=== PATIENT | female | born 1975 | race Caucasian/White ===

== ENCOUNTER 2017-02-04 01:36 | Outpatient (CLI) | payer MEDICARE, MEDICAID | END 2017-02-04 01:37 | disposition home or self-care (01) | LOC: BICULT 01:36 | PROVIDERS: ATTEND Internal Medicine Gastroenterology | DX: K74.60 Unspecified cirrhosis of liver (principal); K80.20 Calculus of gallbladder without cholecystitis without obstruction | CPT/HCPCS: 76705 ==

== ENCOUNTER 2017-04-20 16:36 | Outpatient (CLI) | payer MEDICARE, MEDICAID ==
[2017-04-20 17:30] LABS: Hemoglobin 12.3 g/dL (12.0-16.0); Mean Corpuscular HGB CONC 35.2 g/dL (32.0-36.0); Mean Corpuscular Hemoglobin 35.3 pg (27.0-31.0); Platelet Count 200 thou/uL (130-400); RBC Distribution Width 12.8 % (11.5-14.5); Red Blood Cell (RBC) Count 3.49 mill/uL (4.20-5.40); White Blood Cell (WBC) Count 3.2 thou/uL (4.8-10.8)
[2017-04-20 17:35] LABS: PTT 30.7 SEC (22.9-36.1); Prothrombin Time 13.2 SEC (12.0-14.7)
[2017-04-20 17:37] LABS: BHCG - Serum Negative (NEGATIVE); Pregs Control Background? CLEAR/WHITE (CLR/WHITE); Pregs Control Bar Appear? YES (CONTROL BAR)
[2017-04-20 17:52] LABS: ALT (SGPT) 14 U/L (8-55); AST (SGOT) 24 U/L (5-34); Albumin 4.1 g/dL (3.5-5.0); Alkaline Phosphatase 122 U/L (40-150); Anion Gap 10 mmol/L (10-20); BUN (Urea Nitrogen) 12 mg/dL (7.0-18.7); Bilirubin, Direct 0.2 mg/dL (0.1-0.3); Bilirubin, Total 0.3 mg/dL (0.2-1.2); Calc. Creatinine Clearance 0 mL/min (70-130); Calcium 9.3 mg/dL (7.8-10.44); Carbon Dioxide 37 mmol/L (22-29); Chloride 78 mmol/L (98-107); Estimated GFR-MDRD 67; Glucose 82 mg/dL (70-105); Protein, Total 7.5 g/dL (6.0-8.3); Sodium 122 mmol/L (136-145)
== END 2017-04-20 16:37 | disposition home or self-care (01) ==
LOC: LABBT 16:36
PROVIDERS: ATTEND Student in an Organized Health Care Education/Training Program
DX: Z01.812 Encounter for preprocedural laboratory examination (principal); R87.613 High grade squamous intraepithelial lesion on cytologic smear of cervix (HGSIL); R87.810 Cervical high risk human papillomavirus (HPV) DNA test positive
CPT/HCPCS: 80048; 80076; 84703; 85027; 85610; 85730; 86850; 86900; 86901

== ENCOUNTER 2017-05-18 10:33 | Day surgery (SDC) | payer MEDICARE, MEDICAID ==
[2017-05-15 14:40] VITALS: BMI 16.9
--- NOTE | 2017-05-18 07:49 | HP ---
DATE OF OPERATION: 05/18/2017 CHIEF COMPLAINT: Cervical dysplasia. HISTORY OF PRESENT ILLNESS: This is a 41-year-old G0 with past medical history of hemorrhagic stroke in 2008. History of seizures and alcoholic liver disease , who presented with Pap smear HSIL and vulvar biopsy showing URSZULA-3. She underwent topical treatment for URSZULA without Aldara and subsequently applied the Aldara in excess and resulted in chemical burn to the vulvar area and that has since been treated and resolved. The patient also had ILYA 2 on colpo biopsy and ECC and disposition, the patient had poor cold-knife conization in OR as well as vulvar rebiopsy of URSZULA-3 area. PAST MEDICAL HISTORY: Hemorrhagic stroke in 2008, history of seizures, history of alcoholic liver disease, stable and is followed by Dr. Preciado. OBSTETRIC HISTORY: G0. GYNECOLOGIC HISTORY: Abnormal Pap recently. No history of STDs. PAST SURGICAL HISTORY: Denies. SOCIAL HISTORY: Current smoker. No alcohol or drug use. CURRENT MEDICATIONS: Carbamazepine 200mg po q am and 400mg po q pm, Phenytoin 100mg po tid, ranitidine 150mg po daily, potassium chloride 20mEq four times daily, trazodone 100mg po q hs, quetiapine 600mg po q pm. ALLERGIES: DARVON. PHYSICAL EXAMINATION: VITAL SIGNS: On 04/20/2017, blood pressure was 110/62, weight is 90 pounds, BMI is 15, pulse is 75, respirations 18. GENERAL: No acute distress. CARDIAC: Regular rate and rhythm. LUNGS: Clear to auscultation bilaterally. ABDOMEN: Soft, nontender. EXTREMITIES: No edema, cyanosis or clubbing. PELVIC: Deferred to OR. ASSESSMENT AND PLAN: This is a 41-year-old with history of URSZULA-3 status post treatment with Aldara and ILYA-2 for cold-knife conization secondary to positive ECC and plan to rebiopsy and perform wide local excision of any abnormal tissue around the previous biopsy site. The patient understands the risk of surgery to include bleeding, infection, damage to surrounding tissues or recurrence of dysplasia. The patient has high risk secondary to her liver disease and current smoking and I have counseled the patient extensively on smoking cessation. The patient will follow up with me in 2 weeks postoperative time and has recent preoperative clearance from her primary care doctor. UBALDO
[2017-05-18 11:44] LABS: #Eosinphils 0.3 thou/uL (0.0-0.7); #Lymphocytes 1.5 thou/uL (1.20-3.40); #Monocytes 0.3 thou/uL (0.11-0.59); #Neutrophils 1.9 thou/uL (1.40-6.50); %Basophils 1.1 % (0.0-1.0); %Eosinophils 6.8 % (0.0-10.0); %Lymphocytes 37.2 % (21.0-51.0); %Monocytes 7.4 % (0.0-10.0); %Neutrophils 47.4 % (42.0-75.0); Hemoglobin 14.4 g/dL (12.0-16.0); Mean Corpuscular Hemoglobin 34.3 pg (27.0-31.0); Mean Platelet Volume 7.1 fL (7.4-10.4); Platelet Count 189 thou/uL (130-400); RBC Distribution Width 12.3 % (11.5-14.5)
[2017-05-18 11:47] LABS: PTT 30.9 SEC (22.9-36.1); Prothrombin Time 13.1 SEC (12.0-14.7)
[2017-05-18 12:03] LABS: ALT (SGPT) 18 U/L (8-55); AST (SGOT) 25 U/L (5-34); Albumin 3.9 g/dL (3.5-5.0); Alkaline Phosphatase 96 U/L (40-150); Anion Gap 11 mmol/L (10-20); BUN (Urea Nitrogen) 13 mg/dL (7.0-18.7); Bilirubin, Direct 0.2 mg/dL (0.1-0.3); Bilirubin, Total 0.3 mg/dL (0.2-1.2); Calc. Creatinine Clearance 52 mL/min (70-130); Calcium 9.7 mg/dL (7.8-10.44); Carbon Dioxide 32 mmol/L (22-29); Chloride 101 mmol/L (98-107); Estimated GFR-MDRD 66; Glucose 87 mg/dL (70-105); Protein, Total 6.9 g/dL (6.0-8.3); Sodium 139 mmol/L (136-145)
[2017-05-18] MEDS ORDERED: CEFAZOLIN/Water 2 GM/20 ML SYRINGE ONE (12:07)
[2017-05-18] MEDS ORDERED: Midazolam HCl 2 mg/2 ml Vial ONE (12:07)
[2017-05-18] MEDS ORDERED: Ferric Subsulfate 8 ML BOT ONE (13:15)
[2017-05-18] MEDS ORDERED: Lidocaine 1% w/Epinephrine 1:200K 30 ML VIAL ONE (13:15)
[2017-05-18] MEDS ORDERED: Fentanyl 250 MCG/5 ML VIAL ONE (13:25)
[2017-05-18] MEDS ORDERED: Famotidine/PF 20 mg/2ml Vial ONE (13:25)
[2017-05-18] MEDS ORDERED: Morphine 4 MG/ML VIAL ONE ×2 (14:55→15:15)
--- NOTE | 2017-05-18 14:56 | OP ---
DATE OF PROCEDURE: 05/18/2017 PREOPERATIVE DIAGNOSES: 1. Cervical dysplasia. 2. Vulvar dysplasia. POSTOPERATIVE DIAGNOSES: 1. Cervical dysplasia. 2. Vulvar dysplasia. PROCEDURE: Cold knife cone, wide local excision of vulvar biopsy. ANESTHESIA: General LMA. ATTENDING SURGEON: Irma Nation M.D. PULMONOLOGY TECHNICIAN: None. ESTIMATED BLOOD LOSS: 5 mL. INTRAVENOUS FLUIDS: One liter crystalloid. URINE OUTPUT: 100 mL of clear urine at the beginning of the procedure. DRAINS: None. COMPLICATIONS: None. PATHOLOGY: 1. Cone biopsy marked at 12 o'clock. 2. Lower left vulvar excision. 3. Upper left vulvar biopsy. FINDINGS: The cervix was grossly normal appearing. Nonstaining areas on the cervix were noted after application of Monsel's. The cervical cone bed was hemostatic after procedure. The patient's previ ous vulvar biopsy site at approximately 7:00, 1 x 1 cm wide with a darker pigmentation present and th is was excised with approximately 0.5 cm margin circumferentially. An additional vulvar biopsy was p erformed of the upper left labia where cystic changes were noted on the bilateral labia majora. Thes e are most likely benign, however. OPERATIVE TECHNIQUE: The patient was taken to the operating room where general anesthesia was obtain ed without difficulty. The patient was prepped and draped in a sterile fashion in the dorsal lithoto my position. A speculum was placed in the vagina and the Lugol's was placed over the cervix. Stay s utures of 0 Vicryl were placed at 3 and 9 o'clock, nonstaining areas were noted after application of Lugol's and the cervix was then injected with 20 mL of 1% lidocaine with epinephrine. A [place] blade was used to excise a cone specimen circumferentially and was then tagged at 12. Cervical cone bed w as cauterized with the ball cautery and once hemostasis was noted, Monsel's was applied. [place] c ompression sutures with 0 Vicryl were placed on the anterior and posterior cervical lip. The stay denny tures were then tied in the middle and hemostasis was excellent. The left vulvar area was then exami cristal and cleansed with saline. The wide local excision area was marked with marking pen and injected with 1% lidocaine with epinephrine. The knife was used to excise an ellipse at approximately the 7:0 0 area of the left labia and the Bovie was used to excise the underlying tissue and achieve hemostasi s. This was sent for final pathology. A 2-0 Vicryl was used to approximate the underlying layers of the subcutaneous tissue and wide local excision. A 2-0 Vicryl was then used to run a subcuticular s titch to close the wide local excision and hemostasis was noted to be excellent. An additional biops y was performed of the upper left labia and the specimen was simply excised with a knife and achieved cautery with the Bovie. Hemostasis was noted. All instruments were removed from vagina. The patie nt tolerated procedure well. Sponge, lap, needle counts were correct x2. The patient was taken to r ecovery in stable condition. Patient received Ancef prior to procedure.
[2017-05-18] MEDS ORDERED: Lidocaine 1% PF 5 ML VIAL ONE (15:03)
[2017-05-18] MEDS ORDERED: PHENYLEPHRINE-NS 100 MCG/ML 10 ML SYRINGE ONE (15:03)
[2017-05-18] MEDS ORDERED: Propofol 200 MG/20 ML VIAL ONE (15:03)
[2017-05-18] MEDS ORDERED: Morphine Sulfate 2 MG/ML SYRINGE SLOW IVP PRN (15:05)
[2017-05-18] MEDS ORDERED: Promethazine HCl 25 MG/ML VIAL IM/IV PRN (15:05)
[2017-05-18] MEDS ORDERED: Ondansetron HCl/PF 4 MG/2 ML Vial IVP PRN (15:05)
[2017-05-18] MEDS ORDERED: Meperidine HCl/PF 25 MG/ML VIAL ONE (15:31)
== END 2017-05-18 17:17 | disposition home or self-care (01) ==
LOC: SDC 10:33
PROVIDERS: ATTEND Student in an Organized Health Care Education/Training Program
PROC: 0UBC7ZX Excision of Cervix, Via Natural or Artificial Opening, Diagnostic (ICD-10-PCS; principal; 2017-05-18)
PROC: 0HQAXZZ Repair Inguinal Skin, External Approach (ICD-10-PCS; 2017-05-18)
PROC: 0UBMXZZ Excision of Vulva, External Approach (ICD-10-PCS; 2017-05-18)
DX: N87.0 Mild cervical dysplasia (principal); N90.0 Mild vulvar dysplasia; N90.7 Vulvar cyst; K70.9 Alcoholic liver disease, unspecified; F17.200 Nicotine dependence, unspecified, uncomplicated; Z79.899 Other long term (current) drug therapy; Z88.5 Allergy status to narcotic agent; Z88.6 Allergy status to analgesic agent; Z98.890 Other specified postprocedural states; Z86.73 Personal history of transient ischemic attack (TIA), and cerebral infarction without residual deficits
CPT/HCPCS: 36415; 80048; 80076; 84702; 85025; 85610; 85730; 86850; 86900; 86901; 88305; 88307; 96374; J2001; J2175; J2250; J2270; J2704; J3010; S0028

== ENCOUNTER 2018-01-27 14:58 | Outpatient (CLI) | payer MEDICARE, MEDICAID | END 2018-01-27 14:59 | disposition home or self-care (01) | LOC: BICMAMMO 14:58 | PROVIDERS: ATTEND Internal Medicine | DX: Z12.31 Encounter for screening mammogram for malignant neoplasm of breast (principal) | CPT/HCPCS: 77063; 77067 ==

== ENCOUNTER 2018-07-20 08:18 | Inpatient (IN) | payer MEDICARE, MEDICAID ==
[2018-07-15 17:01] VITALS: BMI 18.2
[2018-07-15 17:05] LABS: Hemoglobin 12.8 g/dL (12.0-16.0); Mean Corpuscular HGB CONC 34.1 g/dL (32.0-36.0); Mean Corpuscular Hemoglobin 33.6 pg (27.0-31.0); Mean Corpuscular Volume 98.7 fL (78.0-98.0); Mean Platelet Volume 7.7 fL (7.4-10.4); Platelet Count 240 thou/uL (130-400); RBC Distribution Width 11.6 % (11.5-14.5); Red Blood Cell (RBC) Count 3.81 mill/uL (4.20-5.40); White Blood Cell (WBC) Count 6.4 thou/uL (4.8-10.8)
[2018-07-15 17:19] LABS: BHCG - Serum Negative (NEGATIVE); Pregs Control Background? CLEAR/WHITE (CLR/WHITE); Pregs Control Bar Appear? YES (CONTROL BAR)
[2018-07-15 17:30] LABS: ALT (SGPT) 20 U/L (8-55); AST (SGOT) 30 U/L (5-34); Albumin 4.5 g/dL (3.5-5.0); Alkaline Phosphatase 139 U/L (40-150); Anion Gap 13 mmol/L (10-20); BUN (Urea Nitrogen) 19 mg/dL (7.0-18.7); Bilirubin, Direct 0.1 mg/dL (0.1-0.3); Bilirubin, Total 0.2 mg/dL (0.2-1.2); Calc. Creatinine Clearance 42 mL/min (70-130); Calcium 9.7 mg/dL (7.8-10.44); Carbon Dioxide 36 mmol/L (22-29); Chloride 94 mmol/L (98-107); Estimated GFR-MDRD 50; Glucose 83 mg/dL (70-105); Potassium 4.3 mmol/L (3.5-5.1); Protein, Total 7.8 g/dL (6.0-8.3); Sodium 139 mmol/L (136-145)
[2018-07-20] MEDS ORDERED: Gabapentin 300 MG CAP ONE (08:46)
[2018-07-20] MEDS ORDERED: Famotidine/PF 20 mg/2ml Vial ONE (08:46)
[2018-07-20] MEDS ORDERED: CeleCOXIB 100 MG CAP ONE (08:47)
[2018-07-20 08:59] LABS: INR-International Normal Ratio 1.1; PTT 30.6 SEC (22.9-36.1); Prothrombin Time 14.1 SEC (12.0-14.7)
[2018-07-20] MEDS ORDERED: Bupivacaine HCl 0.5%/Epinephrine 1:200,000/PF 30 ml Vial ONE (10:39)
[2018-07-20] MEDS ORDERED: Fentanyl 100 MCG/2 ML VIAL ONE ×2 (10:48→13:26)
[2018-07-20] MEDS ORDERED: Ondansetron HCl/PF 4 MG/2 ML Vial IVP PRN (12:48)
[2018-07-20] MEDS ORDERED: Promethazine HCl 25 MG/ML VIAL SLOW IVP PRN (12:48)
[2018-07-20] MEDS ORDERED: Promethazine HCl 25 MG/ML VIAL IM PRN ×2 (12:48→13:04)
[2018-07-20] MEDS ORDERED: Zolpidem Tartrate 5 MG TAB PO PRN (13:04)
[2018-07-20] MEDS ORDERED: HYDROcodone/Acetaminophen 5/325 mg Tablet PO PRN ×2 (13:04)
[2018-07-20] MEDS ORDERED: traMADol HCl 50 MG TAB PO PRN (13:04)
[2018-07-20] MEDS ORDERED: Simethicone Chewable 80 MG TAB PO PRN (13:04)
[2018-07-20] MEDS ORDERED: Bisacodyl 10 MG SUPP PR PRN (13:04)
[2018-07-20] MEDS ORDERED: Fentanyl 100 MCG/2 ML VIAL SLOW IVP PRN (13:04)
[2018-07-20] MEDS ORDERED: traZODone HCl 50 MG TAB PO PRN (13:04)
[2018-07-20] MEDS ORDERED: Ondansetron PF 4 MG/2 ML Vial IVP PRN (13:04)
[2018-07-20] MEDS ORDERED: diphenhydrAMINE 25 MG CAP PO PRN (13:04)
[2018-07-20] MEDS ORDERED: Rocuronium Bromide 10 MG/ML (10ML VIAL) ONE (13:30)
[2018-07-20] MEDS ORDERED: Glycopyrrolate 0.2 MG/ML 5 ML SYRINGE ONE (13:30)
[2018-07-20] MEDS ORDERED: Dexamethasone 20 MG/5 ML VIAL ONE (13:30)
[2018-07-20] MEDS ORDERED: Labetalol HCl 100 MG/20 ML VIAL ONE (13:30)
[2018-07-20] MEDS ORDERED: Ondansetron PF 4 MG/2 ML Vial ONE (13:30)
[2018-07-20] MEDS ORDERED: PROPOFOL 200 MG/20 ML VIAL ONE (13:30)
--- NOTE | 2018-07-20 15:01 | OP ---
DATE OF PROCEDURE: 07/20/2018 PREOPERATIVE DIAGNOSES: 1. Menorrhagia. 2. Persistent cervical dysplasia. POSTOPERATIVE DIAGNOSES: 1. Menorrhagia. 2. Persistent cervical dysplasia. PROCEDURES PERFORMED: Robotic-assisted total laparoscopic hysterectomy and bilateral salpingectomy. ANESTHESIA: General endotracheal. SEARCH LEAD SURGEON: Neelima Meneses PA-C. ESTIMATED BLOOD LOSS: 20 mL. IVF: 900 mL of crystalloid. URINE OUTPUT: 100 mL of clear urine. COMPLICATIONS: None. DRAINS: Aragon catheter. PATHOLOGY: Uterus, cervix, bilateral fallopian tubes. FINDINGS: Mobile 8-week size uterus sounded to 7 cm. Normal uterine contour with a cervix that was foreshortened from the patient's previous cone, however, normal appearing. Normal-appearing vaginal mucosa. Normal-appearing bilateral fallopian tubes and ovaries. Cirrhotic and fibrotic liver. OPERATIVE TECHNIQUE: The patient was taken to the operating room where general anesthesia was obtained without difficulty. The patient was prepped and draped in a sterile fashion in a dorsal lithotomy position. A Aragon catheter was placed in the bladder. A speculum was placed in the vagina. The anterior lip of the cervix was grasped with a single-tooth tenaculum. The cervix was scarred over from the previous cone. The scar tissue was broken up with hemostats, and the uterus was then sounded to 7 cm. The MARIELA manipulator was assembled with a 6 cm tip and a 3.5 cm colpotomizer ring. The MARIELA tip was inserted into the uterus, and the colpotomizer ring was advanced, fit snugly around the cervix. Instruments were removed out of the vagina. The vaginal occluder balloon was inflated. Legs were placed in low lithotomy. Attention was turned to the abdomen. 0.5% Marcaine with epi was infiltrated into the umbilicus, and a 12-mm skin incision was made. The Veress needle was passed into the abdomen, noting an opening pressure of 1 mmHg. Pneumoperitoneum was obtained without difficulty. The Veress needle was removed. The 12-mm trocar was advanced into the abdomen and confirmed placement with robotic camera. Steep Trendelenburg was obtained. Right and left lower quadrant 8-mm robotic trocars were placed under direct visualization after infiltrating with 0.5% Marcaine with epi and making skin incision. A right upper quadrant 11-mm registered nurse first assistant port was also placed under direct visualization after infiltrating with anesthetic. The robot was then docked. The right robotic arm contained monopolar scissors. The left robotic arm contained a fenestrated bipolar. The right fallopian tube was grasped and elevated, and the mesosalpinx was sequentially clamped, cauterized, and transected until the medial portion was met. The fallopian tube was then clamped across, cauterized, transected, and removed out of the abdomen. The utero-ovarian was cauterized x2 and transected in the middle, and this was taken down to the round ligament that was cauterized in the midportion and transected and opened up the anterior and posterior leaves of the broad ligament. The posterior leaf of the broad ligament was dropped down to the level of the uterosacral. The ureter was noted running in the pelvic sidewall at that time in relation to the uterine vessels and internal cervical os. The anterior leaf of the broad ligament was dropped down, and the bladder flap was created, undermining with the fenestrated to ensure clear window and incising with the scissors and then using blunt dissection to dissect the adventitial fibers down below the level of the colpotomizer ring. Attention was turned to the left side where the left fallopian tube was grasped and elevated. The mesosalpinx was cauterized and transected. The fallopian tube was then cauterized, transected, and removed out of the abdomen. The utero-ovarian was cauterized and transected, and the round ligament was cauterized and transected, and the posterior leaf was dropped down to the level of the uterosacral with the scissors, undermining with the fenestrated, and the anterior leaf was incised to the level of the incision from the contralateral side. The uterine vessels were skeletonized with scissors, and the ureter was noted on the left pelvic sidewall. The bladder flap was then further created by scoring on the pubocervical fascia and using the back end of the scissors to bluntly dissect down the bladder flap. The vessels were cauterized on the right and left uterine pedicle and transected. Hemostasis was noted. The colpotomy was performed, and the uterus was then removed into the vagina as a means to maintain pneumoperitoneum. Hemostasis was achieved of the vaginal cuff. The scissors were traded out for the needle tow bar driver. The vaginal cuff was closed with a 2-0 barbed STRATAFIX suture in a running fashion incorporating vaginal mucosa and posterior peritoneum in each bite and then run back for several bites. The needle was then cut and removed out of the abdomen. Copious irrigation was performed of the pelvis, and low pressure check was performed, and hemostasis was noted to be excellent. All instruments were removed from the patient, and the robot was undocked. The fascia of the umbilical port was closed with 0 Vicryl in a [id number] fashion. The skin was closed with 4-0 Monocryl in subcuticular fashion. Dermabond was applied. The vaginal cuff was checked and noted to have excellent closure. No active bleeding and scant blood in the vaginal vault. The patient tolerated the procedure well. Sponge, lap, and needle counts were correct x2. The patient was taken to recovery room in stable condition. The patient received Ancef 2 g prior to the procedure. Job ID: [id number]
[2018-07-20] MEDS ORDERED: Potassium Chloride 20 MEQ TAB PO SCH ×2 (17:00→21:00)
[2018-07-20] MEDS: Ketorolac Tromethamine 30 MG/ML VIAL IVP SCH (19:46)
[2018-07-20] MEDS ORDERED: carBAMazepine 200 MG TAB PO SCH (21:00)
[2018-07-20] MEDS: Lactated Ringer's 1,000 ML IV SCH ×2 (21:32→21:33)
[2018-07-21] MEDS: Ketorolac Tromethamine 30 MG/ML VIAL IVP SCH ×2 (01:47→05:00)
[2018-07-21] MEDS: Lactated Ringer's 1,000 ML IV SCH ×2 (04:50→07:56)
[2018-07-21 06:28] LABS: Hemoglobin 11.2 g/dL (12.0-16.0); Mean Corpuscular HGB CONC 34.1 g/dL (32.0-36.0); Mean Corpuscular Hemoglobin 33.9 pg (27.0-31.0); Mean Corpuscular Volume 99.3 fL (78.0-98.0); Mean Platelet Volume 8.4 fL (7.4-10.4); Platelet Count 169 thou/uL (130-400); RBC Distribution Width 11.6 % (11.5-14.5); White Blood Cell (WBC) Count 7.9 thou/uL (4.8-10.8)
[2018-07-21 06:49] LABS: Anion Gap 12 mmol/L (10-20); BUN (Urea Nitrogen) 21 mg/dL (7.0-18.7); Calc. Creatinine Clearance 46 mL/min (70-130); Calcium 8.7 mg/dL (7.8-10.44); Carbon Dioxide 24 mmol/L (22-29); Chloride 103 mmol/L (98-107); Estimated GFR-MDRD 54; Glucose 85 mg/dL (70-105); Potassium 6.3 mmol/L (3.5-5.1); Sodium 133 mmol/L (136-145)
[2018-07-21] MEDS ORDERED: Ibuprofen 800 MG TAB PO SCH (08:00)
--- NOTE | 2018-07-21 08:31 | PDOC.EVN ---
Event Note - Event Note Event Note: Patient seen on evaluated day 1 s/p robotic TLH with Bilateral salpingectomy. Pt is up and walking the hallway this morning. She has minimal pain. She is urinating normally. She is eating and drinking well. No pain or swelling in her legs. No chest pain, heart fluttering or shortness of breath. She has not had BM yet and is trying to pass gas. PT is well appearing, No distress. VSS, afebile. Pt walking up and down the hong. Her lungs are clear with normal respiratory effort. RRR. Abdomen is soft and non distended. Minimal tenderness. Pt has well healing incisions. Lower extremities and non tender and have no edema. PT is Alert and Oriented with no focal deficits. Her mood and affect are appropriate. Labs reviewed. Her H&H are stable. Her platelet count and coags are WNL. Her BMP showed newly elevated K of 6.3. It was 4.3 preoperative. Her creatinine is stable and slightly improved at 1.1 S/P robotic TLH with Bilateral salpingectomy. Pain controlled. PT clinically doing very well. Hyperkalemia- plan to recheck to confirm elevation and not hemolysis. Pt has hx of hypokalemia and it could have been over corrected as she has hx of hypokalemia and is on daily 60 meq K. This will be held. If repeat is elevated we will initiate treatment and consult Medicine. EKG was obtained and showed slight peaking of the T waves. There was no prolongation of the QRS segment. Hx of seizures. Pt neurologically intact without event. Continue meds. Hx of cirrhosis. Stable. Platelet count WNL and no coagulopathy. CKD. BUN and creatinine stable but new elevation of potassiums as above. Stat repeat of BMP. HX of depression- Clinically stable at this time.
[2018-07-21] MEDS ORDERED: carBAMazepine 200 MG TAB PO SCH (09:00)
[2018-07-21 09:15] LABS: Anion Gap 13 mmol/L (10-20); BUN (Urea Nitrogen) 21 mg/dL (7.0-18.7); Calc. Creatinine Clearance 41 mL/min (70-130); Calcium 9.1 mg/dL (7.8-10.44); Carbon Dioxide 26 mmol/L (22-29); Chloride 101 mmol/L (98-107); Estimated GFR-MDRD 49; Glucose 90 mg/dL (70-105); Potassium 5.2 mmol/L (3.5-5.1); Sodium 135 mmol/L (136-145)
[2018-07-21 11:57] VITALS: BP 111/58; TEMP 98.1
--- NOTE | 2018-07-21 12:43 | PDOC.EVN ---
Event Note - Event Note Event Note: Follow up encounter. PT had elevated K of 6.3 at 5 am labs. BMP repeated and K is now 5.2. Pt remains asymptomatic. Case discussed via telephone with her billet assembler Dr. Quinn Oconnell. He recommends holding her potassium today and resuming tomorrow. Patient to call his office within the next day to schedule follow up potassium draw. This was discussed with patient and she acknowledges understanding. We will move forward at this time with discharge. Her pain is well controlled. Prescriptions have been sent to the pharmacy. She has follow up scheduled with Dr. Nation in 2 week. I discussed discharge planing and follow up with patient at length and addressed all questions and concerns.
[2018-07-25] MEDS ORDERED: Ibuprofen 800 MG TAB PO SCH (22:00)
== END 2018-07-21 13:14 | disposition home or self-care (01) | DRG 743 ==
LOC: SDC 08:18 → 3SE 13:04
PROVIDERS: ADMIT Student in an Organized Health Care Education/Training Program; ATTEND Student in an Organized Health Care Education/Training Program
PROC: 0UT9FZZ Resection of Uterus, Via Natural or Artificial Opening With Percutaneous Endoscopic Assistance (ICD-10-PCS; principal; 2018-07-20)
PROC: 0UT7FZZ Resection of Bilateral Fallopian Tubes, Via Natural or Artificial Opening With Percutaneous Endoscopic Assistance (ICD-10-PCS; 2018-07-20)
PROC: 0UT2FZZ Resection of Bilateral Ovaries, Via Natural or Artificial Opening With Percutaneous Endoscopic Assistance (ICD-10-PCS; 2018-07-20)
PROC: 8E0W4CZ Robotic Assisted Procedure of Trunk Region, Percutaneous Endoscopic Approach (ICD-10-PCS; 2018-07-20)
DX: N92.0 Excessive and frequent menstruation with regular cycle (principal); N87.9 Dysplasia of cervix uteri, unspecified; E87.5 Hyperkalemia; G40.909 Epilepsy, unspecified, not intractable, without status epilepticus; K74.60 Unspecified cirrhosis of liver; F32.9 Major depressive disorder, single episode, unspecified
CPT/HCPCS: 36415; 80048; 80076; 84703; 85027; 85610; 85730; 86850; 86900; 86901; 88307; 93005; 93010; J0670; J0690; J1100; J1885; J2405; J2704; J3010; S0028

== ENCOUNTER 2021-09-23 09:47 | Outpatient (CLI) | payer MEDICARE, MEDICAID | END 2021-09-23 09:48 | disposition home or self-care (01) | LOC: BICMAMMO 09:47 | PROVIDERS: ATTEND Student in an Organized Health Care Education/Training Program | DX: Z12.31 Encounter for screening mammogram for malignant neoplasm of breast (principal) | CPT/HCPCS: 77063; 77067 ==

== ENCOUNTER 2022-12-12 09:53 | Outpatient (CLI) | payer OTHER, MEDICAID | END 2022-12-12 09:54 | disposition home or self-care (01) | LOC: BICMAMMO 09:53 | PROVIDERS: ATTEND Internal Medicine | DX: Z12.31 Encounter for screening mammogram for malignant neoplasm of breast (principal) | CPT/HCPCS: 77063; 77067 ==

== ENCOUNTER 2023-12-22 09:45 | Outpatient (CLI) | payer OTHER, MEDICAID | END 2023-12-22 09:46 | disposition home or self-care (01) | LOC: BICMAMMO 09:45 | PROVIDERS: ATTEND Student in an Organized Health Care Education/Training Program | DX: Z12.31 Encounter for screening mammogram for malignant neoplasm of breast (principal) | CPT/HCPCS: 77063; 77067 ==

== ENCOUNTER 2024-12-23 10:04 | Outpatient (CLI) | payer OTHER, MEDICAID | END 2024-12-23 10:05 | disposition home or self-care (01) | LOC: BICMAMMO 10:04 | PROVIDERS: ATTEND Student in an Organized Health Care Education/Training Program | DX: Z12.31 Encounter for screening mammogram for malignant neoplasm of breast (principal) | CPT/HCPCS: 77063; 77067 ==